=== PATIENT | male | born 1950 | race Caucasian/White ===

== ENCOUNTER 2025-01-22 14:39 | Outpatient (AMB) | payer OTHER, SELFPAY ==
--- NOTE | 2025-01-22 14:45 | A.OFFVIS_ITS ---
Intake Visit Reasons: BPH, elevated psa Intake Note: New Patient is present for elevated PSA and BPH Urology Rx:tamsulosin PVR: 76ml's Blood Thinners: asprin Contract Engineer Required: No Allergies No Known Allergies Allergy (Verified 01/22/25 22:50) Medication List - Last Reconciled 01/22/25 by AIRAM Hudson tamsulosin mg PO triamcinolone acetonide 0.1% appl topical HPI Comments Details: Barak is a 74-year-old male patient who was accompanied by his significant other and at today's office visit. He has a past medical history of BPH, elevated PSA, chronic left knee pain, granuloma annulare, and elevated PSA. In discussion with the patient today he reports having had a longstanding history of an elevated PSA for over 25 years. He reports PSAs have slowly rise over these last 25 years. He reports following up with his PCP and having had a MRI of his prostate last year. These results were reviewed 11/27 seminal vesicles normal. 6 mm cystic focus along the bladder apex, located along the urethral aide of the wall. Bladder wall thickening and trabeculations, likely related to chronic outlet obstruction. No pelvic lymphadenopathy. No MRI evidence of clinically significant prostate cancer. It appears last PSA 11/27 6.6. MRI noted a prostate volume of 64 mL. He reports having had DEBBIE is with PCP that did not know any abnormal findings. He reports initially he had been on tamsulosin every other day however most recently has increase dosage to daily as he does feel he has urinary frequency and nocturia. He denies any known family history of prostate cancer. We did discussed at length potential causes of elevated PSA and further treatment options. He reports initially having made an in office appointment today as he was enquiring prostate embolization with Dr. Bautista. I did discuss further treatment options and risks and benefits of these treatment options. I also discussed finasteride. He denies incontinence, hematuria, dysuria, foul smelling urine, flank pain, fever, and or chills. All questions were answered. He otherwise offers no other issues or concerns at this time. [facility] Medical History (Updated 01/22/25 @ 23:06 by AIRAM Hudson) Benign prostatic hyperplasia with urinary frequency Chronic pain of left knee Granuloma annulare Elevated PSA Review of Systems Const All systems reviewed & are unremarkable except as noted in HPI and below Physical Exam Const General: cooperative, comfortable, no acute distress, well developed, alert and awake Orientation/consciousness: patient oriented x3 Limitations: other limitations (Hard of hearing) HEENT Head: Yes normal to inspection, Yes normocephalic and Yes atraumatic Ears: hearing grossly normal bilaterally Eyes General: appearance normal, both eyes and all related structures Neck Neck: Yes normal visual inspection and Yes trachea midline Chest Chest palpation & inspection: normal inspection of the chest Resp Effort & Inspection: normal respiratory effort and able to speak in complete sentences Cardio Rate: regular rate GI Inspection: Yes normal to inspection General: Yes no CVA tenderness Back/Spine/Pelvis Back: no CVA tenderness Skin General skin exam: no rashes or lesions noted Neuro General: patient oriented x3 Extrem General: Yes normal to inspection Psych Appearance: grossly normal and well kempt Mental Status: mental status grossly normal Speech and movement: Normal speech and movement present and Clear speech present Affect: normal affect Attitude: cooperative Thought process: Normal thought process present Thought content: Normal thought content present Insight: Fair insight present (Psych) Judgement: Fair judgement present (Psych) Office Procedures Post Void Residual Post Residual Void Post Void Residual (PVR): 76 [id number] Void Residual by ultrasound Results AMB Urinalysis, Automated UA Leukoctes 0 Gabriel/uL Last Edit by Tanna Sierra MA on 01/22/25 15:10 UA Nitrite Negative Last Edit by Tanna Sierra MA on 01/22/25 15:10 UA Urobilinogen 3.5 mg/dL Last Edit by Tanna Sierra MA on 01/22/25 15:10 UA Protein 0 mg/dL Last Edit by Tanna Sierra MA on 01/22/25 15:10 UA pH 7.0 Last Edit by Tanna Sierra MA on 01/22/25 15:10 UA Blood 0 Yossi/uL Last Edit by Tanna Sierra MA on 01/22/25 15:10 UA Specific [place]ouck 1.015 Last Edit by Tanna RigoROSELYN on 01/22/25 15:10 UA Ketone Negative Last Edit by Tanna RigoROSELYN on 01/22/25 15:10 UA Bilirubin 0 mg/dL Last Edit by Tanna SierraROSELYN on 01/22/25 15:10 UA Glucose 0 mg/dL Last Edit by Tanna SierraROSELYN on 01/22/25 15:10 Results Reviewed Results Reviewed: Laboratory Last Values Urine pH (Auto) 7.0 01/22/25 14:49 Specific [place]ou[place] (Auto) 1.015 01/22/25 14:49 Urine Protein (Auto) 0 mg/dL 01/22/25 14:49 Glucose (UA)(Auto) 0 mg/dL 01/22/25 14:49 Urine Ketones (Auto) Negative 01/22/25 14:49 Urine Blood (Auto) 0 Yossi/uL 01/22/25 14:49 Urine Nitrite (Auto) Negative 01/22/25 14:49 Urine Bilirubin (Auto) 0 mg/dL 01/22/25 14:49 Urine Urobilinogen (Auto) 3.5 mg/dL 01/22/25 14:49 Leukocyte Esterase (Auto) 0 Gabriel/uL 01/22/25 14:49 Assessment & Plan Assessment & Plan (1) Elevated PSA: Code(s): R97.20 - Elevated prostate specific antigen [PSA] Category: Medical (2) Lower urinary tract symptoms: Code(s): R39.9 - Unspecified symptoms and signs involving the genitourinary system Category: Medical (3) BPH loc w urin obs/LUTS: Code(s): N40.1 - Benign prostatic hyperplasia with lower urinary tract symptoms Category: Medical (4) Bladder trabeculation: Code(s): N32.89 - Other specified disorders of bladder Category: Medical Plan In office urinalysis results reviewed with the patient today; as noted above. PVR 76 mL Previous medical records were reviewed. All questions were answered. We did discussed further treatment options and risks and benefits of these treatment options. Continue tamsulosin as discussed and prescribed. Will obtain redraw of PSA total and free. Will schedule for in office cystoscopy with Dr. Bautista as requested. Follow-up per doctor's orders; or sooner with any issues, concerns, and or questions. Orders: Orders AMB Urinalysis Automated Today Z13.9 - Encounter for screening, unspecified AMB Post Void Residual by ultrasound Today Z13.9 - Encounter for screening, unspecified PSA,Total (Free>4and<10) Today R97.20 - Elevated prostate specific antigen [PSA] Patient Instructions: The patient had an opportunity to ask questions regarding the treatment plan. All questions were answered. Physical exam, labs, and imaging were discussed and reviewed in detail. As well as risks, benefits, and discussion of treatment choices. No major barriers to understanding were identified. The patient expressed understanding and agreement with the above treatment plan. The patient was made aware they should contact our office by phone for worsening of their current condition, the appearance of new symptoms, or with any questions or concerns. Compliance is encouraged with any medications and follow up testing that is ordered. It is a privilege to be allowed the opportunity to participate in? your urological care.? Again, if you have any questions or concerns If you have any questions or concerns please do not hesitate to contact me. The office is [phone]. This note is constructed using voice recognition software. While every effort has been made to ensure accuracy farrowing manager errors may have been included. Yours sincerely, AIRAM Hudson Coding Level of Care Code New Pt Level 3 (62875) Diagnoses Elevated PSA R97.20 Lower urinary tract symptoms R39.9 BPH loc w urin obs/LUTS N40.1 Bladder trabeculation N32.89 CPT Codes Post Residual Void - PVR CPT Code: 68324-[id number] Void Residual by ultrasound ([id number])
--- OUTSIDE RECORDS SUMMARY | 2025-01-22 15:57 | XMS_ITS | Continuity of Care Document ---
Author Name [facility] Organization [facility] Care Team Providers Care Track Leader Name Role Phone [facility] Unavailable Unavailable Problems Combined list of problems from Department of Defense and Veterans [facility] facilities. It does not include entries that were removed or entered in error. 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 Location Location Details Encounter Type Encounter Number Reason For Visit Attending Provider ADM Date DC Date Status [facility] HE[facility]PAIR/MOD IFYING [id number] Diagnos is: ICD-10- CM H90.A32 Mix cndct/s nrl hear loss,un i,l ear w rstrcd hear cntra side AMPARO CASTANEDA 08/21 [place] [facility] [place] [facility] HEARING SERVICE [id number] Diagnos is: ICD-10- CM Z46.1 Encount er for fitting and adjustm ent of hearing aid JUDY ALVARENGA 09/12 [place] [facility] [facility] HEARING AID FITTING/CH ECKING [id number] Diagnos is: ICD-10- CM Z46.1 Encount er for fitting and adjustm ent of hearing aid IVY JONES 05/20 [place] [facility] [facility] [place] [facility] HEARING AID FITTING/CH ECKING [id number] Diagnos is: ICD-10- CM Z46.1 Encount er for fitting and adjustm ent of hearing aid EVELIA ALVARENGARoya ALICE HEATH 10/29 [place] [facility] [place] [facility] Social History Combined list of available smoking, tobacco, and other social history from Department of Defense and Veterans Affairs facilities. Social History Type Response Date Comment [facility] e This section is an empty social history section. [employer]
== END 2025-01-22 15:52 | disposition home or self-care (01) ==
LOC: HO.HUSH 14:39
PROVIDERS: Visit Provider Nurse Practitioner Family
DX: R97.20 Elevated prostate specific antigen [PSA] (principal); R39.9 Unspecified symptoms and signs involving the genitourinary system; N40.1 Benign prostatic hyperplasia with lower urinary tract symptoms; N32.89 Other specified disorders of bladder
CPT/HCPCS: 99203

== ENCOUNTER → 2025-01-22 14:39 | Outpatient (BNVA) | payer OTHER, SELFPAY | PROVIDERS: Visit Provider Nurse Practitioner Family | DX: N40.1 Benign prostatic hyperplasia with lower urinary tract symptoms (principal); N13.8 Other obstructive and reflux uropathy; R97.20 Elevated prostate specific antigen [PSA]; R39.9 Unspecified symptoms and signs involving the genitourinary system; N32.89 Other specified disorders of bladder | CPT/HCPCS: 51798; 81003; 99202 ==

== ENCOUNTER 2025-03-11 06:59 | Outpatient (REF) | payer OTHER, SELFPAY ==
--- OUTSIDE RECORDS SUMMARY | 2025-03-11 07:02 | XMS_ITS | Clinical Summary ---
Author Organization [facility] Address [address] [place] [id number] Phone Care Team Providers Care Folder Inspector Name Role Phone Alexei Black MD Unavailable [phone] Chandrika Agarwal MD Primary Care Provider Allergies No known active allergies Medications multivitamin per tablet Take 1 tablet by mouth daily. Active ibuprofen (ADVIL,MOTRIN) 200 MG tablet Take 200 mg by mouth every 6 (six) hours as needed for pain (specific location in comments). Active aspirin 325 MG tablet Take 325 mg by mouth every 6 (six) hours as needed. Active acetaminophen (TYLENOL) 325 mg tablet Take 1-2 tablets (325-650 mg total) by mouth every 6 (six) hours as needed (mild - moderate pain). 10/26/2022 Active valACYclovir (VALTREX) 1000 MG tablet Take 1 tablet (1,000 mg total) by mouth 2 (two) times a day. As needed for cold sores 14 tablet 2 11/12/2023 Active sildenafiL (VIAGRA) 100 mg tablet Take 1 tablet by mouth every day as needed 6 tablet 2 09/23/2024 Active tamsulosin (FLOMAX) 0.4 mg Cap TAKE 1 CAPSULE BY MOUTH DAILY 90 capsule 3 01/01/2025 Active levocetirizine (XYZAL) 5 MG tablet Take 5 mg by mouth every evening. Active cromolyn (NASALCROM) 5.2 mg/spray (4 %) nasal sprayIndication s:Eustachian tube dysfunction, bilateral One spray in each nostril TID 26 mL 1 01/21/2025 Active Active Problems Problem Noted Date Diagnosed Date Exostosis of external auditory canal, right 01/04 Eustachian tube dysfunction, bilateral Benign prostatic hyperplasia with urinary freque ncy 10/10/2024 Assessment & Plan (10/10/2024 8:39 AM EST): Well-managed with tamsulosin 0.4mg which he takes every other day. Chronic pain of left knee 02/15/2024 Assessment & Plan (03/09/2025 4:01 PM EDT): Improved knee pain with the exercises. He is appreciative of this. Assessment & Plan (10/10/2024 8:36 AM EST): Improved with HEP, without limitations. Assessment & Plan (02/15/2024 9:50 AM EDT): Gene presents for acute on chronic left knee pain-decreased range of motion specifically with extension after flexion. I suspect meniscal fraying causing irritation and inflammation. I gave guidance to go for the x-ray that I ordered of the left knee to rule out any bony abnormalities and I also advised for RICE therapy along with ibuprofen with food. I gave him exercises to start on and I put a referral into Ortho. I informed him to call if his symptoms get worse or if there are any other issues or concerns. He understands and agrees. Mixed conductive and sensorineural hearing loss, bilateral 11/21/2023 Assessment & Plan (04/14/2024 8:50 AM EDT): Hearing aids in place Healthcare maintenance 10/10/2023 Assessment & Plan (10/10/2024 8:36 AM EST): UTD on IZ Screening labwork ordered Assessment & Plan (04/14/2024 8:51 AM EDT): UTD on IZ Screening labwork UTD Assessment & Plan (10/10/2023 2:25 PM EST): Due for screening labs, ordered AAA screening for former tobacco use ordered Other HCM UTD. Peyronie's disease 05/15/2023 Assessment & Plan (04/14/2024 8:50 AM EDT): Previously followed by urology with unsuccessful trial of verapamil injections. Peyronie's not currently causing discomfort. Assessment & Plan (10/10/2023 2:22 PM EST): Followed by urology, currently being treated with verapamil injections. Assessment & Plan (05/15/2023 4:38 PM EDT): I diagnosed Tyrese with peyronie's disease-I gave him guidance regarding this diagnosis and treatment options. He would like referral to urology for consult regarding injectables. I put the referral in today. He was appreciative. He will call if there are any other issues or concerns. He understands and agrees. 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 Assessment & Plan (10/10/2023 2:22 PM EST): Followed by dermatology Chronic seasonal allergic rhinitis due to pollen 02/18/2021 Assessment & Plan (04/14/2024 8:49 AM EDT): Undergoes allergy shots with [facility]. Elevated PSA 02/18/2021 Overview (08/19/2021): PSA 5.34 08/19/2021. Patient elected to repeat in 6 mos., no urology evaluation Assessment & Plan (03/09/2025 3:59 PM EDT): Tyrese presents for a follow-up discussion from his urologist-Dr. Bautista. He notes that he needs a prostate cancer antigen 3 test done-this is a gene test. I informed him that this is not done at [facility] but I will message my nurses to call lab and to see how we can get this test ordered if not by [facility] then by [facility]. He will follow-up with his urologist later this month. I informed him to call if there are any other issues or concerns. He understands and agrees. Assessment & Plan (10/10/2024 8:36 AM EST): Will continue q6mo PSA check, semi-recent MR Prostate was unremarkable. Assessment & Plan (04/14/2024 8:51 AM EDT): Will continue q6mo PSA check, semi-recent MR Prostate was unremarkable. Assessment & Plan (11/21/2023 1:32 PM EDT): Will continue q6mo PSA check, recent MR Prostate was normal. Assessment & Plan (10/10/2023 2:23 PM EST): Monitored with regular PSAs, due for recheck with draw today. Does follow with urology for Peyronie's disease and could discuss with them about possibility of further work-up with MR Prostate and/or biopsy pending repeat PSA. - Follow-up PSA Hearing loss 02/18/2021 Osteoarthritis 02/18/2021 Assessment & Plan (04/14/2024 8:50 AM EDT): OA of left knee, improved with HEP. Will consider CSI in the future should pain worsen. Male erectile disorder 07/09/2020 Resolved Problems Problem Noted Date Diagnosed Date Resolved Date Impetigo 11/21/2023 04/14/2024 Assessment & Plan (11/21/2023 1:31 PM EDT): New onset rash below patient's lower lip with sheen present, consistent with impetigo. Treatment with mupirocin TID for 5 days sent to patient's pharmacy. Follow-up if not improved. COVID-19 11/12/2023 11/21/2023 Assessment & Plan (11/12/2023 2:21 PM EDT): Patient presents for a VV today with concerns of COVID. He is interested in beginning Paxlovid. Educated on administration, benefits, risks, and side effects of Paxlovid including for potential rebounding symptoms. Advised to hold sildenafil while on this medication. There is a potential interaction between Paxlovid and tamsulosin, but he is taking 0.4mg every other day and this is the recommended reduced dosage. Advised to continue symptomatic management. Educated on reasons to follow up or seek care sooner for. Contusion of left elbow 10/10/202304/2024 Assessment & Plan (10/10/2023 2:24 PM EST): Contusion of left elbow following catching heavy object with his left arm, likely representing a triceps tendon strain. Given his elbow has already significantly improved will hold on imaging at this point. Advised ice and anti- inflammatories. Should motion of his left elbow worsen will pursue imaging with U/S to further evaluate tendon and swelling. S/P inguinal hernia repair u sing synthetic patch 11/10/2022 10/10/2024 Urinary retention 10/30/2022 10/10/2023 Assessment & Plan (10/30/2022 11:39 AM EDT): Juan draining with clear yellow urine. We did discuss that he needs to see urology to have them trial removal of catheter. He was provided the number for urologist and will call today. No other concerns with catheter. Peyronie disease 08/17/2022 10/10/2023 Right inguinal hernia 08/18/20212022 Assessment & Plan (10/30/2022 11:38 AM EDT): Healing well post surgery, minimal pain or discomfort. Follow up with surgeon next week. Seasonal allergies 01/17/2019 2 Anal fissure 01/17/2019 02/18/2021 Assessment & Plan (08/28/2019 2:49 PM EST): The patient has an anterior anal fissure. We discussed medical treatment and the importance of stool softeners, fiber and water. He would like to proceed with Botox sphincterotomy. I discussed with the patient the risks and benefits of anorectal exam under anesthesia and sphincterotomy including but not limited to the risks of infection, bleeding, recurrence, need for further surgery such as lateral surgical sphincterotomy, prolonged significant pain, damage to anal sphincter, and loss of continence. The patient understands these risks and wishes to proceed. 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 He will call mid week if this is not helpful. He understands and agrees. Encounters Date Type Department Care Team Description 03/09/2025 3:15 PM EDT Office Visit [address] [address] Andrew Johnson DO Elevated PSA (Primary Dx); Chronic pain of left knee 03/09/2025 Telephone [facility] [address] [place] [address] Andrew Johnson DO 01/21/2025 11:30 AM EDT Office Visit [address] [address] Yesica Bryant MD Eustachian tube dysfunction, bilateral (Primary Dx); Exostosis of external auditory canal, right 01/19/2025 Telephone [facility] [address] [place] [address] Chandrika Agarwal MD Referral ([facility]) 12/31/[address] [address] Mague Lester FNP Medication Refill 12/12/[address] [address] Chandrika Agarwal MD Request For Records from Last 3 Months Immunizations Immunization Administration Dates Next Due COVID-19 (Pre-05/28) Moderna Vaccine, Bivalent 6mo+ 11/28/2022,04/24/2022 COVID-19 (Pre-05/28) Moderna Vaccine, mRNA, PF 11/14/2021,06/09/2021,10/28/2020,09/30 COVID-19 (Pre-05/28) Pfizer Vaccine, Bivalent 12+ 05/08/2023 COVID-19 Moderna Spikevax Vaccine 12+ 10/19/2023 COVID-19 Pfizer Comirnaty Vaccine 12+ 04/08/2024 ,05/03/2023 Influenza High-Dose Quadriva lent Preservative Free IM 04/30/2023,05/08/2022,05/05/2021,05/20 Influenza High-Dose Trivalen t Preservative Free IM 04/08/2024,05/09/2019,04/22/2018,05/10,06/02/2016,05/05/2015,06/10/2014 Influenza Trivalent w/ Preservative IM 1 Influenza trivalent preserva tive free intradermal 05/13/2013,05/16/2012 Influenza, Unspecified Formulation 05/09/2019, Pneumococcal conjugate PCV13 06/10/2014 Pneumococcal polysaccharide PPSV23 07/23/2015 RSV Vaccine (monovalent, adjuvanted) 05/19/2024 Td (adult) 5 Lf Tetanus Toxo id, PF, Adsorbed 01/05/2017,02/08/2007 Tdap 01/04/2018 Zoster live 07/07/2009 Zoster recombinant 02/24/2020,08/27/2019 Family History Medical History Relation Comments COPD Father Alcohol use disorder Mother Relation Status Comments Father Mother Sister Alive Social History Tobacco Use Types Packs/Day Years Used Date Smoking Tobacco: Former Cigarettes 1 2 Smokeless Tobacco: Never Tobacco Cessation:Counseling Given: Not Answered Comments:smoked til age 20 Alcohol Use Standard Drinks/Week Comments Yes 1 (1 standard drink = 0.6 oz pur e alcohol) occasionally Child or Family Care Answer Date Record ed Do you have problems with on e of the following making it difficult for you to work, study, or receive health care? No 04/14/2024 Education Answer Date Recorded Are you interested in more education? Not on tray e 08/19/2023 Are you concerned about learning? Not on file 08/19/2023 No 08/19/2023 No 08/19/2023 Food Answer Date Recorded Within the past 6 months we worried whether our food would run out before we got money to buy more. Never True 04/14/2024 Within the past 6 months the food we bought just didn't last and we didn't have enough money to get more. Never True Residential Stability Answer Date Recor ded What is your housing situation today? I have amber sing 04/14/2024 How many times have you move d in the past 12 months? Zero (I did not move) 04/14/2024 Paying for Meds Answer Date Recorded Do you have trouble paying for medicines? No 04/14/2024 Paying Utility Bills Answer Date Record ed Do you have trouble paying your heating or elect ricity bill? No 04/14/2024 Transportation Answer Date Recorded Has the lack of transportati on kept you from medical appointments or from getting medications? No 04/14/2024 Unemployment Answer Date Recorded Are you currently unemployed or working on a part-time or temporary basis, and looking for work? No 08/15/2021 Digital Access Answer Date Recorded No 04/14/2024 Yes 04/14/2024 Do you have reliable internet access at home? Ye s 04/14/2024 Do you have a device (e.g., phone, tablet, computer) with a working camera? Yes 04/14/2024 Intimate Partner Violence Answer Date R ecorded Denied Basic Needs Not on file 04/14/2024 In the past 12 months have y ou been in a relationship with a person who hurts, threatens, or tries to control you? No 04/14/2024 Worried food would run out Not on file 04/14 In the past 12 months have y ou been in a relationship with a person who hurts, threatens, or tries to control you? No 04/14/2024 Sex and Gender Information Value Date Recorded Sex Assigned at Male 07/06/2020 5:24 PM EST Legal Sex Male 10:04 PM EDT Gender Identity Male 07/06/2020 5:24 PM EST Sexual Orientation Straight 08/15/2021 8: 50 AM EST Last Filed Vital Signs Vital Sign Reading Time Taken Comments Blood Pressure 110/62 03/09/2025 3:17 PM EDT Pulse 70 03/09/2025 3:17 PM EDT Temperature 36.1 C (96.9 F) 03/09/2025 3:17 PM EDT Respiratory Rate 16 10/31/2022 9:49 AM EDT Oxygen Saturation 98% 03/09/2025 3:17 PM EDT Inhaled Oxygen Concentration - - Weight 64.3 kg (141 lb 12.8 oz) 03/09/2025 3:17 PM EDT Height 161.3 cm (5' 3.5 ) 03/09/2025 3:17 PM EDT Body Mass Index 24.72 03/09/2025 3:17 PM EDT Plan of Treatment Upcoming Encounters Date Type Department Care Team (Late st Contact Info) Description 04/17/2025 8:30 AM EDT Office Visit [facility] [address] [place] [address] Chandrika Agarwal MD [address] [facility], [address] [place] [address] [email or web address] Health Maintenance Due Date Last Done Comments SMOKING Hx and SMOKELESS TOBACCO SCREENING 1962 COLOGUARD 1994 FIT TEST 1994 FOBT 1994 SIGMOIDOSCOPY 1994 VIRTUAL COLONOSCOPY 1994 DEPRESSION SCREENING 04/14/2025 04/14/2024 COLONOSCOPY 05/16/2027 05/16/2017 COLORECTAL CANCER SCREENING 05/16/2027 Adult Td,Tdap Booster 01/05/2028 01/04/2018 , 01/05/2017, 02/08/2007 LIPID PANEL 10/13/2029 10/13/2024, 03/0 01/2024, 08/19/2021, Additional history exists PNEUMOCOCCAL VACCINES (50+ years) Completed 07/23/2015, 06/10/2014 ZOSTER VACCINES Completed 02/24/2020, 08/07, 07/07/2009 HEPATITIS C SCREENING Completed 08/17/2022 RSV VACCINE Completed 05/19/2024 COVID-19 VACCINE Completed 11/02/2024, 10/2023, 10/19/2023, Additional history exists HEPATITIS A VACCINES Aged Out No long er eligible based on patient's age to complete this topic HIB VACCINES Aged Out No longer eligi ble based on patient's age to complete this topic MENINGOCOCCAL VACCINES (ACWY) Aged Out No longer eligible based on patient's age to complete this topic MENINGOCOCCAL VACCINES (B) Aged Out N o longer eligible based on patient's age to complete this topic Medical Devices Implanted Type Area Sheet Metal Shop Helper Device Identifier Shelf Expiration Date Model / Serial / Lot Lens Lens Eye Mesh Mesh Abdomen Nodata NODATA Left: Ear Description:stepedectomy Mesh Graft 1.6x1.9in 4.1 4.8cm Lg Perfix Polypropylene Monofilament Plug Inguinal Hernia Soft Tissue Repair /a - [id number] Implanted:Qty: 1 on 10/26/2022 by Dianelys Perez MD at [facility] STANDARD Right: Inguinal [employer] 01/31/2027 [id number] / / [id number] Screw Screw Mouth Description:Dental implant Procedures Procedure Name Priority Date/Time Associated Diagnosis Comments LIPID PANEL Routine 10/13/2024 8:06 AM EDT Screening for cardiovascular condition HEPATITIS C ANTIBODY, QUALITATIVE Routine 08/17/2022 8:57 AM EST Need for hepatitis C screening test from Last 3 Months or Most Recently Relevant to Health Maintenance Results * (ABNORMAL) Lipid panel (10/13/2024 8:06 AM EDT) HDL 62 mg/dL [facility] Comment: Interpretation <40 mg/dL: Low HDL cholesterol (major risk factor for CHD) Greater than or equal to 60 mg/dL: High HDL cholesterol ( negative risk factor for CHD) HDL - cholesterol is affected by a number of factors, e.g. smoking, excerise, hormones, sex and age. CHOLESTEROL 184 0 - 240 mg/dL [facility] TRIGLYCERIDES 84 30 - 160 mg/dL [facility] LDL 105 50 - 129 mg/dL [facility] Comment: LDL levels in terms of risk for coronary heart disease: <100 mg/dL: Optimal 100-129 mg/dL: Near or above optimal 130-159 mg/dL: Borderline high 160-189 mg/dL: High >190 mg/dL: Very High CARDIAC RISK RATIO 3.0(L) 3.4 - 5.0 C [facility] Blood 10/13/2024 8:06 AM EDT 10/13/2024 8:09 AM EDT us Chandrika Agarwal MD LAB BLOOD ORDERABLES Final Result Performing Organization Address City/[facility]/ZIP Co de Phone Number [address] [address] * Hepatitis C antibody, qualitative (08/17/2022 8:57 AM EST) HCV NON-REACTIV E NON-REACTI VE [facility] Blood 08/17/2022 8:57 AM EST 08/17/2022 8:59 AM EST us Alexei Black MD LAB BLOOD ORDERABLES Final Re sult Performing Organization Address City/[facility]/ZIP Co de Phone Number [address] [address] from Last 3 Months or Most Recently Relevant to Health Maintenance Insurance [facility] FAMILY HEALTH PLAN [facility] HEALTH PLAN [facility] HEALTH PLAN [facility] FAMILY HEALTH PLAN Advance Directives For more information, please contact: [phone] (9AM - 5PM [place], Sunday-Sunday) * Full Code (Latest Code Status on File) Date Activated Date Inactivated Comments 10/26/2022 8:51 AM Question Answer Comments Code Status Confirmed With: Patient * Full Code (Presumed) Date Activated Date Inactivated Comments 01/09/2020 1:17 PM 10/26/2022 8:51 AM * Full Code (Presumed) Date Activated Date Inactivated Comments 09/15/2019 7:05 AM 09/15/2019 1:12 PM Care Teams Folder Inspector Relationship Specialty Start Date End Date Chandrika Agarwal MD [address] [facility] [address] [place] [address] [email or web address] PCP - General Family Medicine 07/13/23 Alexei Black MD [address] [place] [address] [address] [place] [address] [email or web address] Historical LMR Provider 05/27/17 Additional Source Comments The information contained in this document represents components of the legal health record. It is not the complete legal health record.[facility]
[2025-03-11 12:09] LABS: PSA,Total (Free>4and<10) 6.99 ng/mL (0.00-4.00)
[2025-03-12 11:34] LABS: Free Prostate Spec Ag 1.7 ng/mL; Percent Free Prostate Spec Ag 25 % (calc) (>25)
== END 2025-03-11 07:00 | disposition home or self-care (01) ==
LOC: HO.10HDL 06:59
PROVIDERS: Visit Provider Nurse Practitioner Family
DX: R97.20 Elevated prostate specific antigen [PSA] (principal); Z12.5 Encounter for screening for malignant neoplasm of prostate
CPT/HCPCS: 36415; 84153; 84154

== ENCOUNTER 2025-03-18 14:52 | Outpatient (AMB) | payer OTHER, SELFPAY ==
--- OUTSIDE RECORDS SUMMARY | 2025-03-18 14:59 | XMS_ITS | Continuity of Care Document ---
Author Name [facility] Organization [facility] Care Team Providers Care Strand Galvanizer Name Role Phone [facility] Unavailable Unavailable Problems Combined list of problems from Department of Defense and Veterans Affairs facilities. It does not include entries that were removed or entered in error. Problem Status Onset Date Problem Type Date of Resolution Comments Source Diagnosis: ICD-10-CM Z46.1 Encounter for fitting and adjustment of hearing aid Active Diagnosis [facility] Encounters Combined list of: 1) Encounters from Department of Veterans Affairs facilities going backup to the last 18 months, not all [place] inpatient encounters are included; 2) Encounters from the Department of Defense facilities going backup to 280 months. Location Location Details Encounter Type Encounter Number Reason For Visit Attending Provider ADM Date DC Date Status Disposition Source [facility] HEARING AID FITTING/CH ECKING [id number] Diagnos is: ICD-10- CM Z46.1 Encount er for fitting and adjustm ent of hearing aid CARLAIVY LINDSAY SAMIRA L 05/20 [facility] HEARING AID FITTING/CH ECKING [id number] Diagnos is: ICD-10- CM Z46.1 Encount er for fitting and adjustm ent of hearing aid JUDY ALVARENGA 10/29 [facility] HEARING AID FITTING/CH ECKING [id number] Diagnos is: ICD-10- CM Z46.1 Encount er for fitting and adjustm ent of hearing aid SHERRIE GANT 03/13 [facility] Social History Combined list of available smoking, tobacco, and other social history from Department of Defense and Veterans Affairs facilities. Social History Type Response Date Comment Sourc e This section is an empty social history section. [facility] Plan of Care List of future care activities from Department of Veterans Affairs facilities. Additional future care activities may be listed in the Assessment and Plan section. Date/Time Care Activity Care Activity Detail Facili ty 03/17/2025 Consult Order OTOLARYNGOLOGY/E NT ONE Cons Costume Design Teacher's Choice [facility]
--- OUTSIDE RECORDS SUMMARY | 2025-03-18 15:00 | XMS_ITS | Clinical Summary ---
Author Organization [facility] Address [address] [place] [address] Phone Care Team Providers Care Assistance Coordinator Name Role Phone Alexei Black MD Unavailable [phone] Chandrika Agarwal MD Primary Care Provider [phone] Allergies No known active allergies Medications multivitamin [...] him that this is not done at [facility] but I will message my nurses to call lab and to see how we can get this test ordered if not by [facility] then by [facility]. He will follow-up with his urologist later [...] Description 03/09/2025 3:15 PM EDT Office Visit [facility] [address] [place] [address] Andrew Johnson DO Elevated PSA (Primary Dx); Chronic pain of left knee 03/09/2025 Telephone [facility] [address] [place] [address] Andrew Johnson DO 01/21/2025 11:30 AM EDT Office Visit [facility] [address] [place] [address] Yesica Bryant MD Eustachian tube dysfunction, bilateral (Primary Dx); Exostosis of external auditory canal, right 01/19/2025 Telephone [facility] [address] [place] [address] Chandrika Agarwal MD Referral ([facility]) 12/31/2024 Refill [facility] [address] [place] [address] Mague Lester Cora, INSURANCE CLAIM APPROVER Medication Refill from Last 3 Months Immunizations Immunization Administration Dates Next Due COVID-19 (Pre-05/28) Moderna Vaccine, Bivalent 6mo+ 11/28/2022,04/24/2022 COVID-19 (Pre-05/28) Moderna Vaccine, mRNA, PF 11/14/2021,06/09/2021,10/28/2020,09/30 COVID-19 (Pre-05/28) Pfizer Vaccine, Bivalent 12+ 05/08/2023 COVID-19 Moderna Spikevax Vaccine 12+ 10/19/2023 COVID-19 Pfizer Comirnaty Vaccine 12+ 04/08/2024 ,05/03/2023 INFLUENZA, SPLIT VIRUS, TRIV ALENT W/ PRESERVATIVE IM 04/25/2011 Influenza High-Dose Quadriva lent Preservative Free IM 04/30/2023,05/08/2022,05/05/2021,05/20 Influenza High-Dose Trivalen t Preservative Free IM 04/08/2024,05/09/2019,04/22/2018,05/10,06/02/2016,05/05/2015,06/10/2014 Influenza trivalent preserva tive free intradermal 05/13/2013,05/16/2012 [...] Description 04/17/2025 8:30 AM EDT Office Visit [facility] [address] [place] [address] Chandrika Agarwal MD [address] [place] [address] [address] [place] [address] [email or web address] Health Maintenance Due Date Last Done Comments [...] this topic Medical Devices Implanted Type Area Oracle Pl Sql Developer Device Identifier Shelf Expiration Date Model / Serial / Lot Lens Lens Eye Mesh Mesh Abdomen Nodata NODATA Left: Ear Description:stepedectomy Mesh Graft 1.6x1.9in 4.1 4.8cm Lg Perfix Polypropylene Monofilament Plug Inguinal Hernia Soft Tissue Repair /2ea - [id number] Implanted:Qty: 1 on 10/26/2022 by Dianelys Perez MD at [facility] STANDARD Right: Inguinal [employer] 01/31/2027 [id number] / / [id number] Screw Screw Mouth Description:Dental implant Procedures Procedure Name Priority Date/Time Associated Diagnosis Comments LIPID PANEL Routine 10/13/2024 8:06 AM EDT Screening for cardiovascular condition HEPATITIS C ANTIBODY, QUALITATIVE Routine 08/17/2022 8:57 AM EST Need for hepatitis C screening test from Last 3 Months or Most Recently Relevant to Health Maintenance Results * (ABNORMAL) Lipid panel (10/13/2024 8:06 AM EDT) HDL 62 mg/dL [facility] Comment: Interpretation <40 mg/dL: Low HDL cholesterol (major risk factor for CHD) Greater than or equal to 60 mg/dL: High HDL cholesterol ( negative risk factor for CHD) HDL - cholesterol is affected by a number of factors, e.g. smoking, excerise, hormones, sex and age. CHOLESTEROL 184 0 - 240 mg/dL [facility] TRIGLYCERIDES 84 30 - 160 mg/dL [facility] LDL 105 50 - 129 mg/dL [facility] Comment: LDL levels in terms of risk for coronary heart disease: <100 mg/dL: Optimal 100-129 mg/dL: Near or above optimal 130-159 mg/dL: Borderline high 160-189 mg/dL: High >190 mg/dL: Very High CARDIAC RISK RATIO 3.0(L) 3.4 - 5.0 C [facility] Blood 10/13/2024 8:06 AM EDT 10/13/2024 8:09 AM EDT us Chandrika Agarwal MD LAB BLOOD ORDERABLES Final Result Performing Organization Address City/[facility]/ZIP Co de Phone Number [address] [address] * Hepatitis C antibody, qualitative (08/17/2022 8:57 AM EST) HCV NON-REACTIV E NON-REACTI VE [facility] Blood 08/17/2022 8:57 AM EST 08/17/2022 8:59 AM EST us Alexei Black MD LAB BLOOD ORDERABLES Final Re sult Performing Organization Address City/[facility] Co de Phone Number [address] [address] from Last 3 Months or Most Recently Relevant to Health Maintenance Insurance [facility] PLAN [facility] PLAN [facility] [place] [address] [facility]AN [facility] PLAN [facility] HEALTH [facility]AN [facility] Address: [address] [place] [address] [facility] [place] [address] Advance Directives For more information, please contact: [phone] (9AM - 5PM [facility], Sunday-Sunday) * Full Code (Latest Code Status on File) Date Activated Date Inactivated Comments 10/26/2022 8:51 AM Question Answer Comments Code Status Confirmed With: Patient * Full Code (Presumed) Date Activated Date Inactivated Comments 01/09/2020 1:17 PM 10/26/2022 8:51 AM * Full Code (Presumed) Date Activated Date Inactivated Comments 09/15/2019 7:05 AM 09/15/2019 1:12 PM Care Teams Assistance Coordinator Relationship Specialty Start Date End Date Chandrika Agarwal MD [address] [place] [address] 7 [place] [address] [email or web address] PCP - General Family Medicine 07/13/23 Alexei Black MD [address] [place] [address] 7 [place] [address] [email or web address] Historical LMR Provider 05/27/17 Additional Source Comments The information contained in this document represents components of the legal health record. It is not the complete legal health record.[facility]
--- NOTE | 2025-03-18 15:01 | A.OFFVIS_ITS ---
Intake Visit Reasons: cysto Intake Note: New Patient is present for: CYSTOSCOPY/ FOLLOW UP LAB WORK Urology Rx:tamsulosin Blood Thinners: NONE LABS DONE 03/11/25: FR PSA 1.7, %FR PSA 25, TOTAL PSA 6.99, OFFSITE 6.7 PVR 53 MLS Board Layer Required: No Accompanied by: SPOUSE Allergies No Known Allergies Allergy (Verified 03/18/25 15:04) HPI Comments Details: Barak is a 74-year-old male patient who was accompanied by his significant other and at today's office visit. He has a past medical history of BPH, elevated PSA, chronic left knee pain, granuloma annulare, and elevated PSA. In discussion with the patient today he reports having had a longstanding history of an elevated PSA for over 25 years. He reports PSAs have slowly rise over these last 25 years. He reports following up with his PCP and having had a MRI of his prostate last year. These results were reviewed 11/27 seminal vesicles normal. 6 mm cystic focus along the bladder apex, located along the urethral aide of the wall. Bladder wall thickening and trabeculations, likely related to chronic outlet obstruction. No pelvic lymphadenopathy. No MRI evidence of clinically significant prostate cancer. It appears last PSA 11/27 6.6. MRI noted a prostate volume of 64 mL. He reports having had DEBBIE is with PCP that did not know any abnormal findings. He reports initially he had been on tamsulosin every other day however most recently has increase dosage to daily as he does feel he has urinary frequency and nocturia. He denies any known family history of prostate cancer. We did discussed at length potential causes of elevated PSA and further treatment options. He reports initially having made an in office appointment today as he was enquiring prostate embolization with Dr. Bautista. I did discuss further treatment options and risks and benefits of these treatment options. I also discussed finasteride. He denies incontinence, hematuria, dysuria, foul smelling urine, flank pain, fever, and or chills. All questions were answered. He otherwise offers no other issues or concerns at this time. [facility] Medical History (Updated 01/22/25 @ 23:06 by KIERRA Hudson-) Benign prostatic hyperplasia with urinary frequency Chronic pain of left knee Granuloma annulare Elevated PSA Office Procedures Post Void Residual Post Residual Void Post Void Residual (PVR): 53 [id number] Void Residual by ultrasound Results AMB Urinalysis, Automated UA Leukoctes 0 Gabriel/uL Last Edit by RUPERT Jorge on 03/18/25 15:19 UA Nitrite Negative Last Edit by Sneha Juarez [facility] on 03/18/25 15:19 UA Urobilinogen 0.2 mg/dL Last Edit by Sneha Juarez [facility] on 03/18/25 15:1 9 UA Protein 0 mg/dL Last Edit by Sneha Juarez [facility] on 03/18/25 15:19 UA pH 6.0 Last Edit by Sneha Juarez [facility] on 03/18/25 15:19 UA Blood 0 Ysosi/uL Last Edit by Sneha Juarez [facility] on 03/18/25 15:19 UA Specific Redfield 1.015 Last Edit by Sneha Juarez [facility] on 03/18/25 15: 19 UA Ketone Negative Last Edit by Sneha Juarez [facility] on 03/18/25 15:19 UA Bilirubin 0 mg/dL Last Edit by Sneha Juarez [facility] on 03/18/25 15:19 UA Glucose 0 mg/dL Last Edit by Sneha Juarez [facility] on 03/18/25 15:19 Results Reviewed Results Reviewed: Laboratory Last Values Urine pH (Auto) 6.0 03/18/25 15:17 Specific Redfield (Auto) 1.015 03/18/25 15:17 Urine Protein (Auto) 0 mg/dL 03/18/25 15:17 Glucose (UA)(Auto) 0 mg/dL 03/18/25 15:17 Urine Ketones (Auto) Negative 03/18/25 15:17 Urine Blood (Auto) 0 Yossi/uL 03/18/25 15:17 Urine Nitrite (Auto) Negative 03/18/25 15:17 Urine Bilirubin (Auto) 0 mg/dL 03/18/25 15:17 Urine Urobilinogen (Auto) 0.2 mg/dL 03/18/25 15:17 Leukocyte Esterase (Auto) 0 Gabriel/uL 03/18/25 15:17 Assessment & Plan Assessment & Plan Orders: Orders AMB Post Void Residual by ultrasound Today N40.1 - Benign prostatic hyperplasia with lower urinary tract symptoms AMB Urinalysis Automated Today Z13.9 - Encounter for screening, unspecified Medications: New finasteride 5 mg PO DAILY 90 tabs 1RF 90 days N40.1 - Benign prostatic hyperplasia with lower urinary tract symptoms Coding CPT Codes Post Residual Void - PVR CPT Code: 33408-Jvlg Void Residual by ultrasound ([id number])
== END 2025-03-18 15:44 | disposition home or self-care (01) ==
LOC: HO.HUSH 14:53
PROVIDERS: PCP Student in an Organized Health Care Education/Training Program; Referring Provider Urology; Visit Provider Urology
DX: Z13.9 Encounter for screening, unspecified (principal)

== ENCOUNTER → 2025-03-18 14:52 | Outpatient (BNVA) | payer OTHER, SELFPAY | PROVIDERS: PCP Student in an Organized Health Care Education/Training Program; Visit Provider Urology | DX: N40.1 Benign prostatic hyperplasia with lower urinary tract symptoms (principal) | CPT/HCPCS: 51798; 81003 ==

== ENCOUNTER 2025-07-07 10:25 | Outpatient (AMB) | payer OTHER, SELFPAY ==
--- NOTE | 2025-07-07 10:47 | A.OFFVIS_ITS ---
Intake Visit Reasons: Uroflow (NO UA) Intake Note: Patient is present for: UROFLOW Urology Rx:tamsulosin, Finasteride Blood Thinners: NONE LABS DONE 03/11/25: FR PSA 1.7, %FR PSA 25, TOTAL PSA 6.99, OFFSITE 6.7 PVR 319 MLS Platen Drier Operator Required: No Accompanied by: Self / Same As Patient Allergies No Known Allergies Allergy (Verified 07/07/25 10:48) HPI Comments Details: Barak is a pleasant male. He is a patient of Dr. Rosario. He is seen for the following urologic conditions - lower urinary tract symptoms - elevated PSA Here for uroflow to assess bladder Uroflow to max 5.4, voided volume 190, high residual, flow index 0.1 Recommend prostate intervention Elevated PSA Longstanding Reports prior prostate MRI - bladder wall thickening with trabeculation, no pelvic lymphadenopathy - prostate volume 65 cc PSA - 03/30 6.7 25% Prior Cystoscopy enlarged prostate [facility] Medical History (Updated 01/22/25 @ 23:[address] [facility]) Benign prostatic hyperplasia with urinary frequency Chronic pain of left knee Granuloma annulare Elevated PSA Review of Systems Const Denies chills and Denies fever(s) Card Reports no additional complaints and Denies syncope Resp Denies cough GI Denies abdominal pain and Denies heartburn Reports as per HPI and Denies change in libido Neuro Denies syncope Psych Denies change in libido Endo Denies change in libido Physical Exam Const General: cooperative, healthy appearing, comfortable and no acute distress Orientation/consciousness: patient oriented x3 HEENT Face and sinus: Yes normal facial exam Mouth: moist mucous membranes Neck Neck: Yes normal visual inspection, Yes full ROM and Yes trachea midline Chest Chest palpation & inspection: normal inspection of the chest Resp Effort & Inspection: normal respiratory effort, able to speak in complete sentences and no respiratory distress GI Inspection: Yes normal to inspection Back/Spine/Pelvis Cervical Spine: normal cervical lordosis Thoracic/Lumbar Spine: thoracic and lumbar spine normal to inspection Skin General skin exam: no rashes or lesions noted Neuro General: patient oriented x3, gait normal, tone normal and moves all extremities Extrem General: Yes normal to inspection and Yes capillary refill normal Office Procedures Post Void Residual Post Residual Void Post Void Residual (PVR): 319 [id number] Void Residual by ultrasound Assessment & Plan Assessment & Plan (1) BPH loc w urin obs/LUTS: Code(s): N40.1 - Benign prostatic hyperplasia with lower urinary tract symptoms Category: Medical (2) Lower urinary tract symptoms: Code(s): R39.9 - Unspecified symptoms and signs involving the genitourinary system Category: Medical Plan We discussed the nature of the decision and reasonable options for performing a prostate intervention. Interventions include TURP, GreenLight laser enucleation of the prostate, GreenLight laser ablation of the prostate, transurethral incision of the prostate, and I-Tend prostate procedure. Options such as medical therapy were discussed. The relative uncertainties and benefits related to each alternate procedure were adequately discussed. General surgical risks including, but not limited to, pain, bleeding, infection, myocardial infarction, pulmonary embolus, deep vein thrombosis and cerebrovascular accident which may result in further hospitalization were discussed. Full disclosure of the procedure as well as all major risks, benefits and complications were discussed including but not limited to damage to the urethra or bladder neck, recurrent BPH, retrograde ejaculation, bladder infection, urge, de paolo frequency, incomplete emptying, dysuria, remote chance of erectile dysfunction, epididymitis, and meatal stenosis. The success rate of the procedure was discussed. Success of the procedure in the short-term does not necessarily guarantee that long-term success will be maintained. Suitable follow up will need to be maintained. The patient showed understanding of discussion. An opportunity was provided for questions to be answered and wishes to proceed with the following procedure. - GreenLight laser prostate Orders: Orders Prostate Specific Antigen 06/26/25 R97.20 - Elevated prostate specific antigen [PSA] Patient Instructions: This note is constructed using voice recognition software. While every effort has been made to ensure accuracy paper twister errors may have been included. Imaging studies, laboratory and physical exam results were discussed and reviewed in detail. No major barriers to patient understanding were identified. An opportunity to ask questions regarding the treatment plan was provided. All questions were answered. The patient expressed understanding and agreement with the above treatment plan. The patient is aware they should contact our office by phone for worsening of their current condition or the appearance of new urologic symptoms. Compliance is encouraged with any medications and followup testing that is ordered. It is a privilege to participate in the urologic care of your patient. If you have any questions or concerns regarding treatment for the above conditions, or other urologic issues, please do not hesitate to contact me. The office telephone contact is [phone]. Sincerely, Dr Jose Angel Bautista MD, LEIDA [facility] - Urology Compassionate Specialist Care for the Genitourinary System Coding Level of Care Code Est Pt Level 4 (27371) Complex visit Add On G2211 Diagnoses BPH loc w urin obs/LUTS N40.1 Lower urinary tract symptoms R39.9 CPT Codes Post Residual Void - PVR CPT Code: 40563-Pbgt Void Residual by ultrasound ([id number])
--- OUTSIDE RECORDS SUMMARY | 2025-07-07 11:56 | XMS_ITS | Encounter Summary ---
Author Organization [facility] Address [address] [place] [address] Phone Care Team Providers Care Cyber Security Specialist Name Role Phone Alexei Black MD Unavailable Alexei Black MD Primary Care Provider Nikki Wisdom DO Unavailable Heydi Soto ANTIQUE REPAIRER Unavailable Mague Lester CONCRETE POURING SUPERVISOR Unavailable Malissa Proctor MD Unavailable [phone] Jamie Pascal MD Unavailable [phone] Chandrika Agarwal MD Primary Care Provider Encounter Details Date Type Department Care Team (Late st Contact Info) Description 01/09/2020 Procedure Pass OR Admitting Dept - [facility] Department [address] [place] [address] Social History Tobacco Use Types Packs/Day Years Used Date Smoking Tobacco: Former Cigarettes Smokeless Tobacco: Never Comments:smoked til age 20 Alcohol Use Standard Drinks/Week Comments Yes 1 (1 standard drink = 0.6 oz pur e alcohol) occasionally Sex and Gender Information Value Date Recorded Sex Assigned at Male 07/06/2020 5:24 PM EST Legal Sex Male 10:04 PM EDT Gender Identity Male 07/06/2020 5:24 PM EST Sexual Orientation Straight 08/15/2021 8: 50 AM EST documented as of this encounter Plan of Treatment Upcoming Encounters Date Type Department Care Team (Late st Contact Info) Description 10/16/2025 8:30 AM EDT Office Visit [facility] Medicine [address] [place] [address] Chandrika Agarwal MD [address] [facility] [address] [place] [address] [email or web address] documented as of this encounter Visit Diagnoses Not on filedocumented in this encounter Additional Health Concerns Infection Onset Date Last Indicated Resolved Time 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 01/06/2020 09/20/2022 1:44 AM EST COVID-19 11/12/2023 11/12/2023 12/03/2023 1:22 AM EDT Assessment Noted Time PHQ-2 Depression Total Score: 0 01/18/20 19 1:43 PM EDT documented as of this encounter Care Teams Cyber Security Specialist Relationship Specialty Start Date End Date Alexei Black MD [address] [place] [address] [place] [address] PCP - General 05/22/17 07/12/23 Chandrika Agarwal MD [address] [place] [address] [place] [address] [email or web address] PCP - General Family Medicine 07/13/23 Alexei Black MD [address] [place] [address] 7 [place] [address] [email or web address] Historical LMR Provider 05/27/17 Nikki Wisdom DO [address] [place] [address] 7 [place] [address] Historical LMR Provider 05/27/17 08/13/21 Heydi Soto, XIMENA [address] [facility], 2nd [place] [address] Historical LMR Provider 05/27/17 08/13/21 Mague Lester FNP [address] [place] [address], [address] [place] [address] [email or web address] Historical LMR Provider 05/27/17 08/13/21 Malissa Proctor MD [address] [place] [address] 7 [place] [address] [email or web address] Historical LMR Provider 05/27/17 08/13/21 Jamie Pascal MD [address] [place] [address] [address] [place] [address] [email or web address] Historical LMR Provider 05/27/17 08/13/21 documented as of this encounter Additional Source Comments The information contained in this document represents components of the legal health record. It is not the complete legal health record.[facility]
--- OUTSIDE RECORDS SUMMARY | 2025-07-07 11:56 | XMS_ITS | Encounter Summary ---
Author Organization [facility] Address [address] [place] [address] [address] [place] [address] Phone Care Team Providers Care Software Sales Name Role Phone Alexei Black MD Unavailable Chandrika Agarwal MD Primary Care Provider Encounter Details Date Type Department Care Team (Late st Contact Info) Description 07/25/2023 Telephone [employer] [facility] [address] [place] [address] Chandrika Agarwal MD [address] [facility] [address] [place] [address] [email or web address] Social History Tobacco Use Types Packs/Day Years [...] work, study, or receive health care? No 08/15/2021 Education Answer Date Recorded Are you interested in help w ith more adult education (for example, completing high school, GED, job training, learning the [place] language, technical skills, or developing parenting skills)? No 08/15/2021 Are you concerned about learning? Not on file 08/15/2021 No 08/15/2021 Yes 08/15/2021 Food Answer Date Recorded Within the past 6 months we worried whether our food would run out before we got money to buy more. Never True 08/15/2021 Within the past 6 months the food we bought just didn't last and we didn't have enough money to get more. Never True Residential Stability Answer Date Recor ded What is your housing situation today? I have amber pimentel 08/15/2021 How many times have you move d in the past 12 months? Zero (I did not move) 08/15/2021 Paying for Meds Answer Date Recorded Do you have trouble paying for medicines? No 08/15/2021 Paying Utility Bills Answer Date Record ed Do you have trouble paying your heating or elect ricity bill? No 08/15/2021 Transportation Answer Date Recorded Has the lack of transportati on kept you from medical appointments or from getting medications? No 08/15/2021 Unemployment Answer Date Recorded Are you currently unemployed or working on a part-time or temporary basis, and looking for work? No 08/15/2021 Digital Access Answer Date Recorded No 01/01/2023 No 01/01/2023 Reliable internet access at home? Not on file 01/01/2023 Device with a working camera? Not on file Sex and Gender Information Value Date Recorded Sex Assigned at Male 07/06/2020 5:24 PM EST Legal Sex Male 10:04 PM EDT Gender Identity Male 07/06/2020 5:24 PM EST Sexual Orientation Straight 08/15/2021 8: 50 AM EST documented as of this encounter Plan of Treatment Upcoming Encounters Date Type Department Care Team (Late st Contact Info) Description 10/16/2025 8:30 AM EDT Office Visit [facility] Medicine [address] [place] [address] Chandrkia Agarwal MD [address] [facility], [address] [place] [address] [email or web address] documented as of this encounter Visit Diagnoses Not on filedocumented in this encounter Additional Health Concerns Infection Onset Date Last Indicated Resolved Time COVID-19 11/12/2023 11/12/2023 12/03/2023 1:22 AM EDT Assessment Noted Time PHQ-2 Depression Total Score: 0 05/15/20 4:33 PM EDT documented as of this encounter Care Teams Software Sales Relationship Specialty Start Date End Date Chandrika Agarwal MD [address] [facility], [address] [place] [address] [email or web address] PCP - General Family Medicine 07/13/23 Alexei Black MD [address] [facility], [address] [place] [address] [email or web address] Historical LMR Provider 05/27/17 documented as of this encounter Additional Source Comments The information contained in this document represents components of the legal health record. It is not the complete legal health record.[facility]
--- OUTSIDE RECORDS SUMMARY | 2025-07-07 11:56 | XMS_ITS | Encounter Summary ---
Author Organization [facility] Address [address] [place] [address] [place] [address] Phone Care Team Providers Care Wire Drawing Machine Tender Name Role Phone Alexei Black MD Unavailable Alexei Black MD Primary Care Provider Nikki Wisdom DO Unavailable Heydi Soto HOSPITAL EDUCATOR Unavailable Mague Lester QUARTZ MOUNTER Unavailable [phone] Malissa Proctor MD Unavailable Jamie Pascal MD Unavailable Chandrika Agarwal MD Primary Care Provider [phone] Encounter Details Date Type Department Care Team (Late st Contact Info) Description 08/29/2019 Prep for Surgery [facility] General Surgical Care [address] [place] [address] Shirley Villar MD 15 [facility], 2nd [place] [address] Social History Tobacco Use Types Packs/Day Years Used Date Smoking Tobacco: Former Smokeless Tobacco: Never Sex and Gender Information Value Date Recorded Sex Assigned at Male 07/06/2020 5:24 PM EST Legal Sex Male 10:04 PM EDT Gender Identity Male 07/06/2020 5:24 PM EST Sexual Orientation Straight 08/15/2021 8: 50 AM EST documented as of this encounter Plan of Treatment Upcoming Encounters Date Type Department Care Team (Late st Contact Info) Description 10/16/2025 8:30 AM EDT Office Visit [facility] Medicine [address] [facility] [place] [address] Chandrika Agarwal MD 234 [facility] 7 [place] [address] [email or web address] documented as of this encounter Visit Diagnoses Not on filedocumented in this encounter Additional Health Concerns Infection Onset Date Last Indicated Resolved Time 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 01/06/2020 09/20/2022 1:44 AM EST COVID-19 11/12/2023 11/12/2023 12/03/2023 1:22 AM EDT Assessment Noted Time PHQ-2 Depression Total Score: 0 01/18/20 19 1:43 PM EDT documented as of this encounter Care Teams Wire Drawing Machine Tender Relationship Specialty Start Date End Date Alexei Black MD [address] [facility] 7 [place] [address] [email or web address] PCP - General 05/22/17 07/12/23 Chandrika Agarwal MD [address] [place] [address] 7 [place] [address] [email or web address] PCP - General Family Medicine 07/13/23 Alexei Black MD 234 [facility] 7 [place] [address] [email or web address] Historical LMR Provider 05/27/17 Nikki Wisdom DO [address] [facility] 7 [place] [address] Historical LMR Provider 05/27/17 08/13/21 Heydi Soto CNP 15 [facility], 2nd [place] [address] Historical LMR Provider 05/27/17 08/13/21 Mague Lester FNP [address] [place] [address], [address] [place] [address] Historical LMR Provider 05/27/17 08/13/21 Malissa Protcor MD [address] [place] [address] 7 [place] [address] Historical LMR Provider 05/27/17 08/13/21 Jamie Pascal MD [address] [place] [address] [address] [place] [address] [email or web address] Historical LMR Provider 05/27/17 08/13/21 documented as of this encounter Additional Source Comments The information contained in this document represents components of the legal health record. It is not the complete legal health record.[facility]
--- OUTSIDE RECORDS SUMMARY | 2025-07-07 11:56 | XMS_ITS | Encounter Summary ---
Author Organization [facility] Address [address] [place] [address] Phone Care Team Providers Care Ice Cream Machine Operator Name Role Phone Alexei Black MD Unavailable Alexei Black MD Primary Care Provider [phone] Nikki Wisdom DO Unavailable Heydi Soto EMAIL DEVELOPER Unavailable Mague Lester ADVERTISING ASSOCIATE Unavailable Malissa Proctor MD Unavailable Jamie Pascal MD Unavailable [phone] Chandrika Agarwal MD Primary Care Provider Encounter Details Date Type Department Care Team (Late st Contact Info) Description 08/09/2020 Procedure Pass [facility], Ct Scan - [address] [address] Social History Tobacco Use Types Packs/Day Years [...] AM EST documented as of this encounter Functional Status * Calculated C-SSRS Risk Score (Lifetime/Recent) Answer Date of Assessment Author No Risk Indicated 08/09/2020 11:13 AM Alise Carmona RN * Gila Suicide Severity Rating Scale (Screener/Recent Self-Report) Question Answer Date of Assessment Author 1. Wish to be (Past 1 Month) No 021 11:13 AM Alise Carmona RN 2. Non-Specific Active Suici shaun Thoughts (Past 1 Month) No 08/09/2020 11:13 AM Alise Carmona RN 6. 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 01/06/2020 09/20/2022 1:44 AM EST COVID-19 11/12/2023 11/12/2023 12/03/2023 1:22 AM EDT Assessment Noted Time PHQ-2 Depression Total Score: 0 01/18/20 19 1:43 PM EDT documented as of this encounter Care Teams Ice Cream Machine Operator Relationship Specialty Start Date End Date Alexei Black MD [address] [place] [address] [place] [address] PCP - General 05/22/17 07/12/23 Chandrika Agarwal MD [address] [place], [place] [address] [place] [address] [email or web address] PCP - General Family Medicine 07/13/23 Alexei Black MD [address] [place] [address], [address] [place] [address] Historical LMR Provider 05/27/17 Nkiki Wisdom DO [address] [place] [address], [address] [place] [address] Historical LMR Provider 05/27/17 08/13/21 Heydi Soto, XIMENA [address] [place] [address], [address] [place] [address] Historical LMR Provider 05/27/17 08/13/21 Mague Lester FNP [address] [place] [address], [address] [place] [address] [email or web address] Historical LMR Provider 05/27/17 08/13/21 Malissa Proctor MD [address] [place] [address], [facility] 7 [place] [address] Historical LMR Provider 05/27/17 08/13/21 Jamie Pascal MD [address] [place] [address] [address] [place] [address] [email or web address] Historical LMR Provider 05/27/17 08/13/21 documented as of this encounter Additional Source Comments The information contained in this document represents components of the legal health record. It is not the complete legal health record.[facility]
--- OUTSIDE RECORDS SUMMARY | 2025-07-07 11:56 | XMS_ITS | Clinical Summary ---
Author Organization [facility] Address [address] [place] [address] Phone Care Team Providers Care Photographic Equipment Mechanic Name Role Phone Alexei Black MD Unavailable [phone] Chandrika Agarwal MD Primary Care Provider [...] needed (mild - moderate pain). 10/26/2022 Active tamsulosin (FLOMAX) 0.4 mg Cap TAKE 1 CAPSULE BY MOUTH DAILY 90 capsule 3 01/01/2025 Active levocetirizine (XYZAL) 5 MG tablet Take 5 mg by mouth every evening. Active cromolyn (NASALCROM) 5.2 mg/spray (4 %) nasal sprayIndication s:Eustachian tube dysfunction, bilateral One spray in each nostril TID 26 mL 1 01/21/2025 Active fluticasone propionate (FLONASE) 50 mcg/actuation nasal spray 1 spray by Nasal route daily. 9.9 mL 1 04/17/2025 Active sildenafiL (VIAGRA) 100 mg tablet Take 1 tablet by mouth every day as needed 6 tablet 2 04/17/2025 Active valACYclovir (VALTREX) 1000 MG tablet Take 1 tablet (1,000 mg total) by mouth 2 (two) times a day. As needed for cold sores 14 tablet 2 2025 Active Active Problems Problem Noted Date Diagnosed Date Mid back pain on right side 04/17/2025 Assessment & Plan (04/17/2025 8:59 AM EDT): No symptoms of radiculopathy. Provided HEP for patient today. Referral to PT for further treatment. Exostosis of external auditory canal, right 01/04 Eustachian tube dysfunction, bilateral Assessment & Plan (04/17/2025 8:56 AM EDT): Will trial Flonase nasal spray in addition to the Xyxal. Has upcoming ENT evaluation. Benign prostatic hyperplasia with urinary freque ncy 10/10/2024 Assessment & Plan (04/17/2025 8:58 AM EDT): Will likely be undergoing procedure with his urologist, Dr. Bautista. Continues on tamsulosin 0.4mg daily. Assessment & Plan (10/10/2024 8:39 AM EST): Well-managed with tamsulosin 0.4mg which he takes every other day. Chronic pain of left knee 02/15/2024 Assessment & Plan (04/17/2025 8:37 AM EDT): Knee pain has been much improved with HEP. Assessment & Plan (03/09/2025 4:01 PM EDT): [...] hearing loss, bilateral 11/21/2023 Assessment & Plan (04/17/2025 8:57 AM EDT): Hearing aids in place which work well. Assessment & Plan (04/14/2024 8:50 AM EDT): Hearing aids in place Healthcare maintenance 10/10/2023 Assessment & Plan (04/17/2025 9:00 AM EDT): UTD on IZ, will get his flu shot later this fall Screening labwork UTD Assessment & Plan (10/10/2024 8:36 AM EST): [...] Plan (05/15/2023 4:38 PM EDT): I diagnosed Gene with peyronie's disease-I gave him guidance regarding this diagnosis and treatment options. He would like referral to urology for consult regarding injectables. I put the referral in today. He was appreciative. He will call if there are any other issues or concerns. He understands and agrees. Nba annulare 08/18/2021 Assessment & Plan (10/10/2024 8:36 [...] mos., no urology evaluation Assessment & Plan (04/17/2025 8:57 AM EDT): Following with urology, UTD on screening PSAs. Assessment & Plan (03/09/2025 3:59 PM EDT): Tyrese presents for a follow-up discussion from his urologist-Dr. Bautista. He notes that he needs a prostate cancer antigen 3 test done-this is a gene test. I informed him that this is not done at [facility] but I will message my nurses to call lab and to see how we can get this test ordered if not by [facility] then by [facility]. He will follow-up with his urologist later [...] biopsy pending repeat PSA. - Follow-up PSA Osteoarthritis 02/18/2021 Assessment & Plan (04/14/2024 8:50 [...] care sooner for. Contusion of left elbow 10/10/2023 09/0 04/2024 Assessment & Plan (10/10/2023 2:24 PM EST): [...] discomfort. Follow up with surgeon next week. Hearing loss 02/18/2021 04/17/2025 Seasonal allergies 01/17/2019 2 Anal fissure 01/17/2019 [...] Encounters Date Type Department Care Team Description 05/27/2025 Telephone [facility] [address] [place] [address] Chandrika Agarwal MD New Referral [facility]ANE 04/17/2025 8:30 AM EDT Office Visit [facility] [address] [place] [address] Chandrika Agarwal MD Annual physical exam (Primary Dx); Elevated PSA; Screening for condition; Chronic pain of left knee; Mid back pain on right side; Eustachian tube dysfunction, bilateral; Mixed conductive and sensorineural hearing loss, bilateral; Benign prostatic hyperplasia with urinary frequency; Healthcare maintenance from Last 3 Months Immunizations Immunization Administration [...] ecorded Denied Basic Needs Not on file 04/13/2025 In the past 12 months have y ou been in a relationship with a person who hurts, threatens, or tries to control you? No 04/13/2025 Worried food would run out Not on file 04/13 In the past 12 months have y ou been in a relationship with a person who hurts, threatens, or tries to control you? No 04/13/2025 Sex and Gender Information Value Date Recorded Sex Assigned at Male 07/06/2020 5:24 PM EST Legal Sex Male 10:04 PM EDT Gender Identity Male 07/06/2020 5:24 PM EST Sexual Orientation Straight 08/15/2021 8: 50 AM EST Last Filed Vital Signs Vital Sign Reading Time Taken Comments Blood Pressure 114/70 04/17/2025 8:17 AM EDT Pulse 70 04/17/2025 8:17 AM EDT Temperature 36.7 C (98 F) 04/17/2025 8:17 AM EDT Respiratory Rate 16 10/31/2022 9:49 AM EDT Oxygen Saturation 98% 04/17/2025 8:17 AM EDT Inhaled Oxygen Concentration - - Weight 64 kg (141 lb) 04/17/2025 8:17 AM EDT Height 161.3 cm (5' 3.5 ) 04/17/2025 8:17 AM EDT Body Mass Index 24.59 04/17/2025 8:17 AM EDT Plan of Treatment Upcoming Encounters Date Type Department Care Team (Late st Contact Info) Description 10/16/2025 8:30 AM EDT Office Visit [facility] [address] [place] [address] Chandrika Agarwal MD [address] [facility], [address] [place] [address] [email or web address] Health Maintenance Due Date Last Done Comments SMOKING Hx and SMOKELESS TOBACCO SCREENING 1962 COLOGUARD 1994 FIT TEST 1994 FOBT 1994 SIGMOIDOSCOPY 1994 VIRTUAL COLONOSCOPY 1994 INFLUENZA VACCINE (#1) 2025 , 04/30/2023, 05/08/2022, Additional history exists COVID-19 VACCINE ( season) 2025 11/02/2024, 04/08/2024, 10/19/2023, Additional history exists DEPRESSION SCREENING 04/13/2026 04/13/2025 COLONOSCOPY 05/16/2027 05/16/2017 COLORECTAL CANCER SCREENING 05/16/2027 Adult Td,Tdap Booster 01/05/2028 01/04/2018 , 01/05/2017, 02/08/2007 LIPID PANEL 10/13/2029 10/13/2024, 03/0 01/2024, 08/19/2021, Additional history exists PNEUMOCOCCAL VACCINES (50+ years) Completed 07/23/2015, 06/10/2014 ZOSTER VACCINES Completed 02/24/2020, 08/07, 07/07/2009 HEPATITIS C SCREENING Completed 08/17/2022 RSV VACCINE Completed 05/19/2024 HEPATITIS A VACCINES Aged Out No long [...] this topic Medical Devices Implanted Type Area Arbitrator Device Identifier Shelf Expiration Date Model / Serial / Lot Lens Lens Eye Mesh Mesh Abdomen Nodata NODATA Left: Ear Description:stepedectomy Mesh Graft 1.6x1.9in 4.1 4.8cm Lg Perfix Polypropylene Monofilament Plug Inguinal Hernia Soft Tissue Repair Cs/2ea - [id number] Implanted:Qty: 1 on 10/26/2022 by Dianelys Perez MD at [facility] Right: Inguinal [employer] 01/31/2027 [id number] / / [id number] Screw Screw Mouth Description:Dental implant Procedures Procedure Name Priority Date/Time Associated Diagnosis Comments LIPID PANEL Routine 10/13/2024 8:06 AM EDT Screening for cardiovascular condition HEPATITIS C ANTIBODY, QUALITATIVE Routine 08/17/2022 8:57 AM EST Need for hepatitis C screening test from Last 3 Months or Most Recently Relevant to Health Maintenance Results * (ABNORMAL) Lipid panel (10/13/2024 8:06 AM EDT) HDL 62 mg/dL [facility] Comment: Interpretation <40 mg/dL: Low HDL cholesterol (major risk factor for CHD) Greater than or equal to 60 mg/dL: High HDL cholesterol ( negative risk factor for CHD) HDL - cholesterol is affected by a number of factors, e.g. smoking, excerise, hormones, sex and age. CHOLESTEROL 184 0 - 240 mg/dL [facility] TRIGLYCERIDES 84 30 - 160 mg/dL [facility] LDL 105 50 - 129 mg/dL [facility] Comment: LDL levels in terms of risk for coronary heart disease: <100 mg/dL: Optimal 100-129 mg/dL: Near or above optimal 130-159 mg/dL: Borderline high 160-189 mg/dL: High >190 mg/dL: Very High CARDIAC RISK RATIO 3.0(L) 3.4 - 5.0 C [facility] Blood 10/13/2024 8:06 AM EDT 10/13/2024 8:09 AM EDT us Chandrika Agarwal MD LAB BLOOD BKR ORDERABLES Fi nal Result [facility] [address] [place] [address] * Hepatitis C antibody, qualitative (08/17/2022 8:57 AM EST) HCV NON-REACTIV E NON-REACTI VE [facility] Blood 08/17/2022 8:5 7 AM EST 08/17/2022 8:59 AM EST us Alexei Black MD LAB BLOOD BKR ORDERABLES Cheryl dereje Result [facility] [address] [place] [address] from Last 3 Months or Most Recently Relevant to Health Maintenance Insurance [facility] Address: [address] [address] [facility] [place] [address] [facility] Address[facility] [address] [place] [address] [facility] Advance Directives For more information, please contact: [phone] (9AM - 5PM [facility], Sunday-Sunday) * Full Code (Latest Code Status on File) Date Activated Date Inactivated Comments 10/26/2022 8:51 AM Question Answer Comments Code Status Confirmed With: Patient * Full Code (Presumed) Date Activated Date Inactivated Comments 01/09/2020 1:17 PM 10/26/2022 8:51 AM * Full Code (Presumed) Date Activated Date Inactivated Comments 09/15/2019 7:05 AM 09/15/2019 1:12 PM Care Teams Photographic Equipment Mechanic Relationship Specialty Start Date End Date Chandrika Agarwal MD [address] [facility], [facility] 7 [place] [address] [email or web address] PCP - General Family Medicine 07/13/23 Alexei Black MD [address] [place] [address], [facility] 7 [place] [address] [email or web address] Historical LMR Provider 05/27/17 Additional Source Comments The information contained in this document represents components of the legal health record. It is not the complete legal health record.[facility]
--- OUTSIDE RECORDS SUMMARY | 2025-07-07 11:56 | XMS_ITS | Encounter Summary ---
Author Organization [facility] Address [address] [place] [address] Phone Care Team Providers Care Electric Power Line Examiner Name Role Phone Alexei Black MD Unavailable [phone] Alexei Black MD Primary Care Provider Nikki Wisdom DO Unavailable Heydi Soto SENIOR SALES MANAGER Unavailable Mague Lester SUPERVISOR BURLING AND JOINING Unavailable Malissa Proctor MD Unavailable Jamie Pascal MD Unavailable [phone] Chandrika Agarwal MD Primary Care Provider Encounter Details Date Type Department Care Team (Late st Contact Info) Description 08/09/2020 Procedure Pass [facility], Ct Scan - [address] [address] Social History Tobacco Use Types Packs/Day Years [...] 08/09/2020 11:13 AM Alise Carmona RN * Kendall Suicide Severity Rating Scale (Screener/Recent Self-Report) Question [...] Description 10/16/2025 8:30 AM EDT Office Visit [address] [place] [address] Chandrika Agarwal MD [address] [place] [address] [place] [address] [email or web address] documented as of this encounter Visit Diagnoses Not on filedocumented in this encounter Additional Health Concerns Infection Onset Date Last Indicated Resolved Time 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 01/06/2020 09/20/2022 1:44 AM EST COVID-19 11/12/2023 11/12/2023 12/03/2023 1:22 AM EDT Assessment Noted Time PHQ-2 Depression Total Score: 0 01/18/20 19 1:43 PM EDT documented as of this encounter Care Teams Electric Power Line Examiner Relationship Specialty Start Date End Date Alexei Black MD [address] [place] [address] [place] [address] PCP - General 05/22/17 07/12/23 Chandrika Agarwal MD [address] [place], [place] [address] [address] [email or web address] PCP - General Family Medicine 07/13/23 Alexei Black MD [address] [place] [address], [address] [place] [address] Historical LMR Provider 05/27/17 Nikki Wisdom DO [address] [place] [address], [address] [place] [address] Historical LMR Provider 05/27/17 08/13/21 Heydi Soto, XIMENA [address] [place] [address], [address] [place] [address] Historical LMR Provider 05/27/17 08/13/21 Mague Lester FNP [address] [place] [address], [address] [place] [address] [email or web address] Historical LMR Provider 05/27/17 08/13/21 Malissa Proctor MD [address] [place] [address], [facility] 7 [place] [address] Historical LMR Provider 05/27/17 08/13/21 Jamie Pascal MD [address] [place] [address] [address] [place] [address] [email or web address] Historical LMR Provider 05/27/17 08/13/21 documented as of this encounter Additional Source Comments The information contained in this document represents components of the legal health record. It is not the complete legal health record.[facility]
--- OUTSIDE RECORDS SUMMARY | 2025-07-07 11:56 | XMS_ITS | Encounter Summary ---
Author Organization [facility] Address [address] [place] [address] Phone Care Team Providers Care Evp Head Of [employer] Experience Strategy Name Role Phone Alexei Black MD Unavailable Alexei Black MD Primary Care Provider Nikki Wisdom DO Unavailable Heydi Soto ANNEALING OVEN OPERATOR Unavailable Mague Lester MIXER OPERATOR RAW SALT Unavailable [phone] Malissa Proctor MD Unavailable [phone] Jamie Pascal MD Unavailable [phone] Chandrika Agarwal MD Primary Care Provider [phone] Encounter Details Date Type Department Care Team (Late Contact Info) Description 09/15/2019 Procedure Pass OR Admitting Dept - [facility] Department [address] [place] [id number] Social History Tobacco Use Types Packs/Day Years Used Date Smoking Tobacco: Former Cigarettes Smokeless Tobacco: Never Comments:smoked til age 20 Alcohol Use Standard Drinks/Week Comments Yes 0 (1 standard drink = 0.6 oz pur e alcohol) Sex and Gender Information Value Date Recorded Sex Assigned at Male 07/06/2020 5:24 PM EST Legal Sex Male 10:04 PM EDT Gender Identity Male 07/06/2020 5:24 PM EST Sexual Orientation Straight 08/15/2021 8: 50 AM EST documented as of this encounter Plan of Treatment Upcoming Encounters Date Type Department Care Team (Late st Contact Info) Description 10/16/2025 8:30 AM EDT Office Visit [facility] Medicine [address] [place] [address] Chandrika Agarwal MD 234 [facility] [address] [place] [address] [email or web address] documented as of this encounter Visit Diagnoses Not on filedocumented in this encounter Additional Health Concerns Infection Onset Date Last Indicated Resolved Time 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 01/06/2020 09/20/2022 1:44 AM EST COVID-19 11/12/2023 11/12/2023 12/03/2023 1:22 AM EDT Assessment Noted Time PHQ-2 Depression Total Score: 0 01/18/20 1:43 PM EDT documented as of this encounter Care Teams Evp Head Of [employer] Experience Strategy Relationship Specialty Start Date End Date Alexei Black MD [address] [place] [address] [place] [phone] PCP - General 05/22/17 07/12/23 Chandrika Agarwal MD [address] [place] [address] [place] [phone] [email or web address] PCP - General Family Medicine 07/13/23 Alexei Black MD [address] [place] [address] 7 [place] [address] [email or web address] Historical LMR Provider 05/27/17 Nikki Wisdom DO [address] [place] [address] [address] [place] [address] Historical LMR Provider 05/27/17 08/13/21 Heydi Soto, XIMENA [address] [facility], 2nd [place] [address] [email or web address] Historical LMR Provider 05/27/17 08/13/21 Mague Lester FNP [address] [place] [address] [address] [place] [address] [email or web address] Historical LMR Provider 05/27/17 08/13/21 Malissa Proctor MD [address] [place] [address] 7 [place] [address] [email or web address] Historical LMR Provider 05/27/17 08/13/21 Jamie Pascal MD [address] [place] [address] [address] [place] [address] [email or web address] Historical LMR Provider 05/27/17 08/13/21 documented as of this encounter Additional Source Comments The information contained in this document represents components of the legal health record. It is not the complete legal health record.[facility]
--- OUTSIDE RECORDS SUMMARY | 2025-07-07 11:56 | XMS_ITS | Encounter Summary ---
Author Organization [facility] Address [address] [facility] [address] [place] [address] Phone Care Team Providers Care Tankroom Worker Name Role Phone Alexei Black MD Unavailable [phone] Chandrika Agarwal MD Primary Care Provider [phone] Encounter Details Date Type Department Care Team (Late st Contact Info) Description 10/22/2023 Procedure Pass [facility] [address] [place] [address] Social History Tobacco Use Types Packs/Day Years Used Date Smoking Tobacco: Former Cigarettes 1 2 Smokeless Tobacco: Never Comments:smoked til age 20 [...] Description 10/16/2025 8:30 AM EDT Office Visit [facility] Medicine [address] [place] [address] Chandrika Agarwal MD [address] [address] [email or web address] documented as of this encounter Visit Diagnoses Not on filedocumented in this encounter Additional Health Concerns Infection Onset Date Last Indicated Resolved Time COVID-19 11/12/2023 11/12/2023 12/03/2023 1:22 AM EDT Assessment Noted Time PHQ-2 Depression Total Score: 0 10/10/19 24 2:00 PM EST documented as of this encounter Care Teams Tankroom Worker Relationship Specialty Start Date End Date Chandrika Agarwal MD [address] [address] [email or web address] PCP - General Family Medicine 07/13/23 Alexei Black MD [address] [place] [address] [address] [place] [address] [email or web address] Historical LMR Provider 05/27/17 documented as of this encounter Additional Source Comments The information contained in this document represents components of the legal health record. It is not the complete legal health record.[facility]
--- OUTSIDE RECORDS SUMMARY | 2025-07-07 11:56 | XMS_ITS | Encounter Summary ---
Author Organization [facility] Address [address] [place] [address] [place] [address] Phone Care Team Providers Care Manager Hospitality Name Role Phone Alexei Black MD Unavailable [phone] Alexei Black MD Primary Care Provider [phone] Chandrika Agarwal MD Primary Care Provider [phone] Encounter Details Date Type Department Care Team (Late st Contact Info) Description 10/26/2022 Procedure Pass OR Admitting Dept - Virtual Department [address] [place] [address] Social History Tobacco Use Types Packs/Day Years [...] high school, GED, job training, learning the Polish language, technical skills, or developing parenting skills)? [...] basis, and looking for work? No 08/15/2021 Sex and Gender Information Value Date Recorded Sex Assigned at Male 07/06/2020 5:24 PM EST Legal Sex Male 10:04 PM EDT Gender Identity Male 07/06/2020 5:24 PM EST Sexual Orientation Straight 08/15/2021 8: 50 AM EST documented as of this encounter Functional Status * Calculated C-SSRS Risk Score (Lifetime/Recent) Answer Date of Assessment Author No Risk Indicated 10/27/2022 11:13 AM EDT Lucinda Gr RN * [place] Suicide Severity Rating Scale (Screener/Recent Self-Report) Question Answer Date of Assessment Author 1. Wish to be (Past 1 Month) No 10/27/2022 11:13 AM VENKATT Lucinda Saucedo RN 2. Non-Specific Active Suici shaun Thoughts (Past 1 Month) No 10/27/2022 11:13 AM EDT Chloe Saucedo RN 6. Suicidal Behavior (Lifetime) No 11:13 AM VENKATT Lucinda Saucedo RN documented as of this encounter Plan of Treatment Upcoming Encounters Date Type Department Care Team (Late st Contact Info) Description 10/16/2025 8:30 AM EDT Office Visit [facility] [address] [place] [address] Chandrika Agarwal MD [address] [facility], [address] [place], [place] [id number] [email or web address] documented as of this encounter Visit Diagnoses Not on filedocumented in this encounter Additional Health Concerns Infection Onset Date Last Indicated Resolved Time COVID-19 11/12/2023 11/12/2023 12/03/2023 1:22 AM EDT Assessment Noted Time PHQ-2 Depression Total Score: 0 08/15/19 8:57 AM EST documented as of this encounter Care Teams Manager Hospitality Relationship Specialty Start Date End Date Alexei Black MD [address] [facility], [facility] [address] [place] [address] [email or web address] PCP - General 05/22/17 07/12/23 Chandrika Agarwal MD [address] [place] [address], [facility] [address] [place], [place] [address] [email or web address] PCP - General Family Medicine 07/13/23 Alexei Black MD [address] [place] [address], [address] [place] [address] [email or web address] Historical LMR Provider 05/27/17 documented as of this encounter Additional Source Comments The information contained in this document represents components of the legal health record. It is not the complete legal health record.[facility]
== END 2025-07-07 11:56 | disposition home or self-care (01) ==
LOC: HO.HUSH 10:26
PROVIDERS: PCP Student in an Organized Health Care Education/Training Program; Visit Provider Urology
DX: N40.1 Benign prostatic hyperplasia with lower urinary tract symptoms (principal); R39.9 Unspecified symptoms and signs involving the genitourinary system
CPT/HCPCS: 99214

== ENCOUNTER → 2025-07-07 10:25 | Outpatient (BNVA) | payer OTHER, SELFPAY | PROVIDERS: PCP Student in an Organized Health Care Education/Training Program; Visit Provider Urology | DX: N40.0 Benign prostatic hyperplasia without lower urinary tract symptoms (principal); R39.9 Unspecified symptoms and signs involving the genitourinary system | CPT/HCPCS: 51798; 99212 ==